=== PATIENT | male | born 1975 | race Caucasian/White ===

== ENCOUNTER 2018-12-14 15:58 | Emergency (ER) | payer BC, OTHER ==
[~2018-12-14] VITALS: Ht 175.3 cm; Wt 72.7 kg
[2018-12-14 16:08] VITALS: BP 137/61; PULSE 72; TEMP 98.2
[2018-12-14] MEDS ORDERED: TRIAMCINOLONE A15 GM TP (17:03)
== END 2018-12-14 17:20 | disposition home or self-care (01) ==
LOC: COL.ER 15:58
DX: L25.9 Unspecified contact dermatitis, unspecified cause (principal)
CPT/HCPCS: J7512

== ENCOUNTER → 2019-12-25 | Outpatient (CLI) | payer BC ==
[~2019-12-25] MED LIST: FLONASEALLERGY NS; PREDNISONE20 MG PO; TRIAMCINOLONE A15 GM TP
== END ==
LOC: COL.RAD 13:48
DX: N18.3 Chronic kidney disease, stage 3 (moderate) (principal)